=== PATIENT | male | born 1980 | race Caucasian/White ===

== ENCOUNTER → 2023-06-07 10:43 | Outpatient (BNVA) | payer OTHER, SELFPAY | PROVIDERS: PCP Internal Medicine; Visit Provider Physician Assistant | DX: S46.911A Strain of unspecified muscle, fascia and tendon at shoulder and upper arm level, right arm, initial encounter (principal); X50.3XXA Overexertion from repetitive movements, initial encounter | CPT/HCPCS: 99204 ==

== ENCOUNTER → 2023-06-15 09:33 | Outpatient (BNVA) | payer OTHER, SELFPAY | PROVIDERS: PCP Internal Medicine; Visit Provider Physician Assistant | DX: S46.911D Strain of unspecified muscle, fascia and tendon at shoulder and upper arm level, right arm, subsequent encounter (principal); X50.3XXD Overexertion from repetitive movements, subsequent encounter | CPT/HCPCS: 99213 ==

== ENCOUNTER 2023-06-29 11:01 | Outpatient (AMB) | payer OTHER, SELFPAY ==
--- NOTE | 2023-06-29 11:04 | MHC.OFFVIS ---
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 Patient reports pulling a favian out from a car, when he pulled his arm back he felt a pulling sensation in his shoulder. Pain is in the anterior aspect of the shoulder, but pain moves around depending on what he does during the day per patient. Patient states that his pain makes his ROM limited. Allergies No Known Allergies Allergy (Verified 06/29/23 11:16) HPI stylist apprentice- right shoulder injury HPI Details 42-year-old right hand dominant male who presents in the office today, as a new patient, for an evaluation of right shoulder pain. The patient claims on 05/24/2023 he pulled a favian out from a car, when he felt a pulling sensation in the right shoulder while pulling the right upper extremity back. He reports the pain is on the anterior aspect of the right shoulder. He states he has an increase in pain when moving around which increases depending on what he has done during the day. He claims to have limited ROM due to pain. This is a work related injury. [facility] Social History (Updated 06/29/23 @ 11:17 by Se Turner) Alcohol intake: current Patient Tobacco Use Status: Current someday Tobacco user Current occupational status: employed Current occupation: right hand dominant Review of Systems Const All systems reviewed & are unremarkable except as noted in HPI and below Physical Exam Const General: cooperative and no acute distress Orientation/consciousness: patient oriented x3 Resp Effort & Inspection: normal respiratory effort and able to speak in complete sentences Cardio Peripheral pulses: Peripheral pulses 2+ throughout Skin General skin exam: no rashes or lesions noted Neuro General: patient oriented x3 Extrem Other: Right shoulder: Normal to inspection. No ecchymosis, erythema, or edema. Tenderness to palpation at the bicep tendon insertion. Full shoulder ROM in all planes. Positive cross-body reach. 4/5 strength with empty can. Negative drop arm. NVI. Assessment & Plan Assessment & Plan (1) Painful arc syndrome of right shoulder: Code(s): M75.101 - Unspecified rotator cuff tear or rupture of right shoulder, not specified as traumatic Plan Mr. Ny is a 42-year-old right hand dominant male who presents in the office today, as a new patient, for an evaluation of right shoulder pain. The patient claims on 05/24/2023 he pulled a favian out from a car, when he felt a pulling sensation in the right shoulder while pulling the right upper extremity back. He reports the pain is on the anterior aspect of the right shoulder. He states he has an increase in pain when moving around which increases depending on what he has done during the day. He claims to have limited ROM due to pain. This is a work related injury. The patient is currently attending physical therapy. He will continue to work with physical therapy. We will order an MRI to further evaluate the integrity of the right shoulder. He will contact the office by phone once he has had the MRI to discuss what the next step will be. Follow up will be after the MRI is obtained, or sooner if needed. Prior x-rays were negative for any acute fractures or dislocation. Orders: Orders MR shoulder RT wo con Today M75.101 - Unspecified rotator cuff tear or rupture of right shoulder, not specified as traumatic Patient Instructions: Scribed for Ladan Lee PA-C by Nilsa Espitia medical collections specialist, on 06/29/2023 at 11:06 am, EST. Coding Level of Care Code New Pt Level 4 (90189) Diagnoses Painful arc syndrome of right shoulder M75.101
== END 2023-06-29 11:28 | disposition home or self-care (01) ==
PROVIDERS: PCP Internal Medicine; Visit Provider Physician Assistant
DX: M75.101 Unspecified rotator cuff tear or rupture of right shoulder, not specified as traumatic (principal)
CPT/HCPCS: 99204

== ENCOUNTER → 2023-06-29 11:01 | Outpatient (BNVA) | payer OTHER, SELFPAY | PROVIDERS: PCP Internal Medicine; Visit Provider Physician Assistant | DX: M75.101 Unspecified rotator cuff tear or rupture of right shoulder, not specified as traumatic (principal) | CPT/HCPCS: 99202 ==

== ENCOUNTER 2023-07-27 14:02 | Outpatient (REF) | payer OTHER, SELFPAY ==
--- NOTE | ~2023-07-27 | MR_ITS ---
EXAMINATION: MR SHOULDER WITHOUT CONTRAST, RIGHT CLINICAL INFORMATION: Right shoulder pain and decreased range of motion. Evaluate for a rotator cuff tendon tear. COMPARISON: Right shoulder radiographs dated 06/07/2023. TECHNIQUE: MRI of the shoulder without contrast was performed on a high-field scanner. FINDINGS: ROTATOR CUFF: Intact. No muscle atrophy or fatty infiltration. BICEPS: Intact. CORACOACROMIAL ARCH: The undersurface of the acromion is curved with no subacromial spur. Severe acromioclavicular osteoarthritis. There is subchondral cystic change and marrow edema as well as adjacent capsular edema. Findings may be degenerative or indicate acromioclavicular osteolysis, which can be seen in the setting of an overuse injury. Trace fluid within the subacromial subdeltoid bursa, consistent with mild bursitis. LABRUM/CAPSULE: No displaced labral tear. Intact joint capsule. GLENOHUMERAL JOINT/MARROW: Intact articular cartilage. Mild degenerative cystic change within the greater tuberosity. MR/MR shoulder RT wo con IMPRESSION: 1. Severe acromioclavicular osteoarthritis with subchondral cystic change and marrow edema as well as adjacent capsular edema. Findings may be degenerative or indicate acromioclavicular osteolysis, which can be seen in the setting of an overuse injury. 2. Mild subacromial subdeltoid bursitis. 3. No rotator cuff or labral tear.
--- NOTE | ~2023-07-27 | XR_ITS ---
EXAMINATION: XR PRE MRI SCREENING INDICATION: MRI screening. TECHNIQUE: 3 views of the orbits were obtained. FINDINGS: No radiopaque foreign bodies were found. XR/XR pre mri screening IMPRESSION: No evidence of metallic foreign body.
== END 2023-07-27 14:03 | disposition home or self-care (01) ==
LOC: HO.MRI 14:02
PROVIDERS: Visit Provider Physician Assistant
DX: M75.101 Unspecified rotator cuff tear or rupture of right shoulder, not specified as traumatic (principal)
CPT/HCPCS: 73221

== ENCOUNTER 2023-08-10 13:43 | Outpatient (AMB) | payer OTHER, SELFPAY ==
--- NOTE | 2023-08-10 14:08 | A.OFFVIS_ITS ---
Intake Intake Visit Reasons: OV - Right Shoulder MRI Review Intake Note: Naga 42 yr old male presents today for his right shoulder MRI review. States no changes in pain or medical history since last visit. Allergies No Known Allergies Allergy (Verified 08/10/23 14:12) HPI OV - Right Shoulder MRI Review HPI Details 42-year-old male who presents in the off ice today for a follow up of right shoulder pain and review of his MRI. The patient reports no change in the pain. He confirms participating in physical therapy on Monday08/07/2023. He states after physical therapy he had severe pain. This pain kept him from being able to go to work. He states he was able to go to work on Monday and Monday, but still had pain. He states the pain is not as severe today. He states he is having a hard time with daily activities like putting on clothes and playing with his grandchild. He has no change in his medical history from his last appointment. [facility], [facility] Social History Alcohol intake: current Patient Tobacco Use Status: Current someday Tobacco user Current occupational status: employed Current occupation: right hand dominant Review of Systems Const All systems reviewed & are unremarkable except as noted in HPI and below Physical Exam Const General: cooperative, healthy appearing and no acute distress Orientation/consciousness: patient oriented x3 Resp Effort & Inspection: normal respiratory effort and able to speak in complete sentences Cardio Rate: regular rate Peripheral pulses: Peripheral pulses 2+ throughout GI Palpation (GI): Soft to palpation Skin General skin exam: no rashes or lesions noted Lesions: no lesions Rashes: no rashes Neuro General: patient oriented x3 Extrem Other: Right shoulder: Normal to inspection. No ecchymosis, erythema, or edema. Tenderness to palpation at the bicep tendon insertion. Pain along the impingement arc. Full shoulder ROM in all planes. Positive cross-body reach. 4/5 strength with empty can. Negative drop arm. NVI. Office Procedures Joint Injection/Drain Joint Injection/Drain Primary Site: other (right AC joint) Prep: site was prepped using aseptic technique, ethochloride spray was applied and injection warnings given Injected: 0.25% bupivacaine (1mL ), decadron (1mL ) and other (1mL of 2% plain lido ) Approach Used: other (superior ) Procedure: The patient tolerated the procedure well, but had some pain with the injection and there was some relief with the local anesthesia Coding 68073 - Medium joint Procedure code (CPT) selection complete Results Reviewed Results Reviewed: 08/10/23 14:29 BUPivacaine MPF 0.25 % [Sensorcaine-MPF 0.25% 10 ML] 10 ml .ROUTE .STK-MED ONE Lidocaine HCl 1 % [Xylocaine 1 %] 2 ml .ROUTE .STK-MED ONE dexAMETHasone sod phosphate [Decadron] 4 mg .ROUTE .STK-MED ONE Assessment & Plan Assessment & Plan (1) Painful arc syndrome of right shoulder: Code(s): M75.101 - Unspecified rotator cuff tear or rupture of right shoulder, not specified as traumatic Plan Mr. Ny is a 42-year-old male who presents in the office today for a follow up of right shoulder pain and review of his MRI. The patient reports no change in the pain. He confirms participating in physical therapy on Monday08/07/2023. He states after physical therapy he had severe pain. This pain kept him from being able to go to work. He states he was able to go to work on Monday and Monday, but still had pain. He states the pain is not as severe today. He has no change in his medical history from his last appointment. Dr. Mccormack was available see the patient with me while in the office today and collaborative treatment plan was made. I discussed the role of an AC joint injection. We also discussed the role of conservative verses surgical treatments. The patient presented with paperwork for his job to be filled out. 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 Dr. Mccormack injected the patient in the right shoulder AC joint. The patient was offered a cortisone injection in the right shoulder. The patient was explained the risk, benefits, and alternatives to receiving this injection. After receiving consent for the injection, the patient had the procedure done while in office today. The patient tolerated the procedure well with no complications. He will contact the office in 2 weeks to let us know if the injection worked. Follow up will be via phone call in 2 weeks, or sooner if needed. MRI of the right shoulder, obtained on 07/27/2023, revealed: 1. Severe acromioclavicular osteoarthritis with subchondral cystic change and marrow edema as well as adjacent capsular edema. Findings may be degenerative or indicate acromioclavicular osteolysis, which can be seen in the setting of an overuse injury. 2. Mild subacromial subdeltoid bursitis. 3. No rotator cuff or labral tear. Patient Instructions: Scribed for Ladan Lee PA-C by Nilsa Espitia medical office asst, on 08/10/2023 at 1:47 pm, EST. Coding Level of Care Code Est Pt Level 4 (02564) Diagnoses Painful arc syndrome of right shoulder M75.101 CPT Codes Coding - 10546 Medium joint: 91917 - Medium joint ([id number])
== END 2023-08-10 14:57 | disposition home or self-care (01) ==
PROVIDERS: PCP Internal Medicine; Visit Provider Physician Assistant
DX: M19.011 Primary osteoarthritis, right shoulder (principal)
CPT/HCPCS: 20605; 99214

== ENCOUNTER → 2023-08-10 13:43 | Outpatient (BNVA) | payer OTHER, SELFPAY | PROVIDERS: PCP Internal Medicine; Visit Provider Physician Assistant | DX: M75.101 Unspecified rotator cuff tear or rupture of right shoulder, not specified as traumatic (principal) | CPT/HCPCS: 20605; 99212; J1100 ==

== ENCOUNTER 2023-09-19 09:39 | Outpatient (AMB) | payer OTHER, SELFPAY ==
--- NOTE | 2023-09-19 09:41 | MHC.OFFVIS ---
Intake Intake Visit Reasons: OV-Right shoulder pain Intake Note: Naga is a 43 year old male who presents today for a follow up for his right shoulder pain, last injection 08/10/23. Patient reports his last injection didn't give him relief. Patient is still having ongoing pain in his shoulder. Allergies No Known Allergies Allergy (Verified 08/10/23 14:12) HPI OV-Right shoulder pain HPI Details 43-year-old male who presents in the office today for a follow up of right shoulder pain. The patient had a cortisone injection on 08/10/2023. He states his last injection only gave him 2 days of decreased pain. He confirms ongoing pain since his last appointment. He is continuing to participate in physical therapy, but his pain returned to base line. [facility] Social History Alcohol intake: current Patient Tobacco Use Status: Current someday Tobacco user Current occupational status: employed Current occupation: right hand dominant Review of Systems Const All systems reviewed & are unremarkable except as noted in HPI and below Physical Exam Const General: cooperative, healthy appearing and no acute distress Resp Effort & Inspection: normal respiratory effort and able to speak in complete sentences Cardio Rate: regular rate Peripheral pulses: Peripheral pulses 2+ throughout GI Palpation (GI): Soft to palpation Skin Lesions: no lesions Rashes: no rashes Extrem Other: Right shoulder: Normal to inspection. No ecchymosis, erythema, or edema. Tenderness to palpation at the bicep tendon insertion. Pain along the impingement arc. Full shoulder ROM in all planes. Positive cross-body reach. 4/5 strength with empty can. Negative drop arm. NVI. Assessment & Plan Assessment & Plan (1) Painful arc syndrome of right shoulder: Code(s): M75.101 - Unspecified rotator cuff tear or rupture of right shoulder, not specified as traumatic Plan Mr. Ny is a 43-year-old male who presents in the office today for a follow up of right shoulder pain. The patient had a cortisone injection on 08/10/2023. He states his last injection only gave him 2 days of decreased pain. He confirms ongoing pain since his last appointment. He is continuing to participate in physical therapy, but his pain returned to base line. I would like for the patient to follow up with Dr. Mccormack for further evaluation and treatment to discuss possible surgical intervention. Follow up will be with Dr. Mccormack, or sooner if needed. Patient Instructions: Scribed for Ladan Lee PA-C by Nilsa Espitia medical coding technician, on 09/19/2023 at 9:49 am, EST. Coding Level of Care Code Est Pt Level 3 (87688) Diagnoses Painful arc syndrome of right shoulder M75.101
== END 2023-09-19 09:59 | disposition home or self-care (01) ==
PROVIDERS: PCP Internal Medicine; Visit Provider Physician Assistant
DX: M75.101 Unspecified rotator cuff tear or rupture of right shoulder, not specified as traumatic (principal)
CPT/HCPCS: 99213

== ENCOUNTER → 2023-09-19 09:39 | Outpatient (BNVA) | payer OTHER, SELFPAY | PROVIDERS: PCP Internal Medicine; Visit Provider Physician Assistant | DX: M75.101 Unspecified rotator cuff tear or rupture of right shoulder, not specified as traumatic (principal) | CPT/HCPCS: 99212 ==

== ENCOUNTER 2023-09-28 10:53 | Outpatient (AMB) | payer OTHER, SELFPAY ==
--- NOTE | 2023-09-28 10:56 | MHC.OFFVIS ---
Intake Intake Visit Reasons: OV - to discuss surgery, rt shoulder Intake Note: Naga is a 43 year old right hand dominant male who presents today to discuss possible surgery of the right shoulder. Last Injection done 08/10/2023 with which gave about 1 week relief. 05/24/2023 he pulled a favian out from a car, when he felt a pulling sensation in the right shoulder while pulling the right upper extremity back. Patient reports that his symptoms are about the same. Allergies No Known Allergies Allergy (Verified 08/10/23 14:12) HPI OV - to discuss surgery, rt shoulder HPI Details Naga is a 43 year old man who presents for an MRI review of his right shoulder. He says on 05/24/23, while removing a favian from underneath a car, he felt a painful pulling sensation in his right shoulder and began to feel pain. He has pain with daily activity, along with limited ROM. He feels a clicking or catching sensation in his shoulder at times, and describes feeling something bothering his nerves when he moves it like something plucking guitar strings. He found short-term relief from a steroid injection on 08/10/23, and some improvements with PT, but he continues to have pain and be limited in his activities. 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 [facility] Social History Alcohol intake: current Patient Tobacco Use Status: Current someday Tobacco user Current occupational status: employed Current occupation: right hand dominant Review of Systems Const All systems reviewed & are unremarkable except as noted in HPI and below Physical Exam Const General: no acute distress, alert and awake Orientation/consciousness: patient oriented x3 HEENT Head: Yes normocephalic and Yes atraumatic Eyes EOM: EOMs intact bilaterally Resp Effort & Inspection: normal respiratory effort and able to speak in complete sentences Cardio Jugular venous distension: no JVD Skin General skin exam: turgor normal Rashes: no rashes Neuro General: patient oriented x3 Extrem Other: Right Shoulder: Psych Appearance: grossly normal Affect: normal affect Attitude: cooperative Results Reviewed Results Reviewed: I personally reviewed relevant MR images 1. Severe acromioclavicular osteoarthritis with subchondral cystic change and marrow edema as well as adjacent capsular edema. Findings may be degenerative or indicate acromioclavicular osteolysis, which can be seen in the setting of an overuse injury. 2. Mild subacromial subdeltoid bursitis. 3. No rotator cuff or labral tear. Assessment & Plan Assessment & Plan (1) Osteoarthritis of right acromioclavicular joint: Code(s): M19.011 - Primary osteoarthritis, right shoulder Plan: This is a 43 year old man with right AC joint OA. He has pain with daily activity, and limited ROM. He feels limited in his ADLs and use of his arm, and is frustrated by his pain. His pain began after an injury on 05/24/23. He found relief from steroid injections & PT but it was incomplete. He has difficulty completing daily activities without pain. I discussed his diagnosis and treatment options. I recommend a right shoulder clavicle excision. I discussed the risks, benefits, and alternatives including, but not limited to, the risk of pain, infection, stiffness, need for further surgery as well as potential medical complications such as blood clots, pulmonary embolism and cardiac complications. I discussed the recovery timeline and process as well as the importance of PT. Naga is a good candidate for this surgery, and he wishes to proceed with this decision. He will speak with Briseyda to schedule this procedure. He Plan Scribed for Joe Mccormack MD by Braden Ayon, biomedical engineering technologist, on 09/28/23 at 11:30 AM, EST. Coding Level of Care Code Est Pt Level 4 (95111) Diagnoses Osteoarthritis of right acromioclavicular joint M19.011
== END 2023-09-28 11:56 | disposition home or self-care (01) ==
PROVIDERS: PCP Internal Medicine; Visit Provider Orthopaedic Surgery
DX: M19.011 Primary osteoarthritis, right shoulder (principal)
CPT/HCPCS: 99214

== ENCOUNTER → 2023-09-28 10:53 | Outpatient (BNVA) | payer OTHER, SELFPAY | PROVIDERS: PCP Internal Medicine; Visit Provider Orthopaedic Surgery | DX: M19.011 Primary osteoarthritis, right shoulder (principal) | CPT/HCPCS: 99212 ==

== ENCOUNTER 2023-10-25 09:16 | Day surgery (SDC) | payer OTHER, SELFPAY ==
--- NOTE | 2023-10-24 08:39 | P.CONAN_ITS ---
Documented by User: Concha Santoyo NP 10/24/23 08:45 HPI - Anesthesia Eval Consult details Narrative: 43yo M for Right Shoulder Arthroscopy distal clavicle excision and subacromial decompression Recent URI with abx/prednisone 10/13/23. Rx's complete and symptoms resolved. Productive cough in the morning since quitting smoking 3 years ago. [facility] Active Problems Active Problems: All Active Problems (Updated 09/28/23 @ 11:19 by Braden Ayon) Osteoarthritis of right acromioclavicular joint (Acute) Painful arc syndrome of right shoulder (Acute) Surgical History Surgical History (Updated 10/25/23 @ 10:32 by Aleshia Salomon RN) Hx of vasectomy History of inguinal hernia repair, bilateral Hx of foot surgery Social History Social History Alcohol intake: current Patient Tobacco Use Status: Former Tobacco user Quit Date: 4yrs ago Use of substances other than those prescribed or required for medical reasons: No Are you DNR?: No Advance Directives: No Advance Directives Information Provided: Yes Current occupational status: employed Current occupation: right hand dominant Meds Allergies Allergy/AdvReac Type Severity Reaction Status Date / Time No Known Allergies Allergy Verified 08/10/23 14:12 Assessment and Plan Assessment Anesthesia Assessment: Chart Reviewed Documented by User: Chalo Anderson MD 10/25/23 12:03 [facility] Family History Family history of problems with anesthesia: No Surgical History Surgical History (Updated 10/25/23 @ 10:32 by Aleshia Salomon RN) Hx of vasectomy History of inguinal hernia repair, bilateral Hx of foot surgery History of Problems with Anesthesia: No Social History Social History Alcohol intake: current Patient Tobacco Use Status: Former Tobacco user Quit Date: 4yrs ago Use of substances other than those prescribed or required for medical reasons: No Are you DNR?: No Advance Directives: No Advance Directives Information Provided: Yes Current occupational status: employed Current occupation: right hand dominant Meds Allergies Allergy/AdvReac Type Severity Reaction Status Date / Time No Known Allergies Allergy Verified 08/10/23 14:12 Exam Airway Mallampati Class: III TM Dist: >3cm Neck ROM: Limited Heart: rrr Lungs: cta Assessment and Plan Assessment Anesthesia Assessment: Anesthesia Plan Discussed and Smoking Cess. Discussed Final Anesthetic Review Family History of Problems with Anesthesia: No History of Problems with Anesthesia: No NPO: Yes ASA Class: II Final Preanesthetic Review: No Changes in Pt Med Stat, Meds/Allgs Chart Reviewed, Consent Obtained/Reviewed and Anes Risks/Benef Reviewed Patient Risk: Intermediate Procedure Risk: Intermediate Anesthetic Plan Anesthetic Plan: GA, Regional Block and Agree w/ Assess. and Plan Disposition: Standard PACU
[2023-10-25] VITALS (8 sets, daily range): BP systolic 116–128; BP diastolic 64–81; PULSE 57–89; RESP 16–22; TEMP 36.3–36.9; O2SAT 94–100; BMI 34.2
[2023-10-25] MEDS: Lactated Ringers 1,000 ML 100 ML IVCONT (10:47)
--- NOTE | 2023-10-25 13:49 | MHC.SHP ---
Pre-Procedural Eval Section A Date of Service: 10/25/23 The patient is an INPATIENT: No Changes since office visit: No Cold of Flu in the past 2 weeks, No New Medical Problems, No Changes in Medication and No Patient answered all questions The History & Physical has been completed within 30 days and I have reviewed it.: Yes Section B Chief Complaint: Primary osteoarthritis, right shoulder Allergies: Allergies Allergy/AdvReac Type Severity Reaction Status Date / Time No Known Allergies Allergy Verified 08/10/23 14:12 Plan I have reviewed the history and physical and performed a pertinent physical examination on my patient. No changes have occurred unless specified. Time Spent With Patient Time: Total time managing care of this patient today ____ minutes.
[2023-10-25] MEDS: HYDROmorphone HCl 0.5 MG/0.5 ML SYRINGE 0.25 MG IVPUSH ×4 (15:45→16:00)
[2023-10-25] MEDS: Acetaminophen 1,000 MG/100 ML PIGGYBACK 400 MG IV (15:52)
--- NOTE | 2023-10-25 18:04 | P.BOP_ITS ---
Brief Operative Note Date of Service: 10/25/23 Pre-op diagnosis: right shoulder margie and ACJ OA Post-op diagnosis: other (1) ACJ OA 2) RTC tear 3) SLAP tear) Procedure: Right shoulder RTC repair with collagen allograft with SAD and DCE Biceps sub pectoral tenodesis Implants: Regeneten bioinductive collagen implant, medium Arthrex biceps suture button and interference screw Surgeon: Joe Mccormack MD Anesthesia: GETA and regional Was an Motor Vehicle License Clerk used for this Procedure?: Yes Motor Vehicle License Clerk: Ladan Lee Estimated blood loss (mL): 25 IV fluids (mL): 1,200 Pathology: none sent Condition: stable Disposition: PACU
--- NOTE | 2023-10-27 15:40 | W.PM.OPN ---
Operative Note Operative Note Date of Service: 10/25/23 Narrative: Date of Service: 10/25/23 Pre-op diagnosis: right shoulder margie and ACJ OA Post-op diagnosis: other (1) ACJ OA 2) RTC tear 3) SLAP tear) Procedure: Right shoulder RTC repair with collagen allograft with SAD and DCE Biceps sub pectoral tenodesis Implants: Regeneten bioinductive collagen implant, medium Arthrex biceps suture button and interference screw Surgeon: Joe Mccormack MD Anesthesia: GETA and regional Was an Care Information Associate used for this Procedure?: Yes Care Information Associate: Ladan Lee Estimated blood loss (mL): 25 IV fluids (mL): 1,200 Pathology: none sent Condition: stable Disposition: PACU Procedure in detail: Patient was brought to the operating room and placed the the beach chair position. All bony prominences were well padded and the limb was prepped and draped in standard sterile fashion. A time out was called to identify proper site, proper procedure and proper surgeon. IV antibiotics per weight were administered. I began by making a posterolateral stab incision with a 15 blade. A blunt trochar was placed into the glenohumeral joint and I insufflated the joint with saline and a 30 degree arthroscope was placed. I established an outside- in anterior portal just distal to the biceps tendon. I then began my inspection of the glenohumeral joint. There was a large degenerative SLAP tear at the biceps anchor ( Type 2). There were minimal cartilage changes at the inferior glenoid without humeral head changes. There was a partial thickness undersurface RTC tear. The subcapularis was intact. I debrided the loose cartilage of the glenoid and the degenerative labral tearing and performed a biceps tenotomy. I then removed the trochar and entered the subacromial space. A direct lateral portal was then established and I performed a bursectomy. The cuff was then examined. There was a bursal sided partial thickness tear adjacent to the undersurface tearing. I debrided the loose tissue. I then placed a medium Regeneten bioinductive implant over the bursal sided tear. This was attechd medially with PEEK kylah and laterally wiht one bone staple. I then decompressed the subacromial spur. I then, via the anterior portal, removed 5 mm of the distal clavicle making sure to preserve the superior soft tissues. Once I was satisfied with the repair final images were captured and I removed all instrumentation. Portals were closed with nylon. I then made a 2 cm incision over the axillary fold and , once through the skin, dissected bluntly down to the humeral shaft and palpated the biceps tendon. I retrieved the tenotomized tendon and whip stitched it and measured a 7mm tendon. I then drilled a 7.5 mm unicorital hole and the second cortex was drilled with a beefpin. The suture button was then added and dunked through the second cortex. The button was tightened and then the Arthrex interference screw was placed. I was satisfied with the tenodesis. The wound was irrigated and closed with absorbable suture. Patient was placed in an abduction sling, extubated and brought to the recovery room in stable condition. There were no known complications.
== END 2023-10-25 17:10 | disposition home or self-care (01) ==
LOC: HO.SSS 09:17
PROVIDERS: PCP Internal Medicine; Visit Provider Orthopaedic Surgery
PROC: (CPT 29805; principal; 2023-10-25 11:30)
DX: M19.011 Primary osteoarthritis, right shoulder (principal); X50.0XXA Overexertion from strenuous movement or load, initial encounter; Y93.89 Activity, other specified; Y92.9 Unspecified place or not applicable; Y99.9 Unspecified external cause status; F17.210 Nicotine dependence, cigarettes, uncomplicated
CPT/HCPCS: 29827; 29828; 29824; C1713; C1781; J0131; J0171; J0690; J1100; J1170; J2405; J2704; J2795

== ENCOUNTER → 2023-10-25 09:16 | Outpatient (BNV) | payer OTHER, SELFPAY | PROVIDERS: PCP Internal Medicine; Visit Provider Orthopaedic Surgery | DX: S43.431A Superior glenoid labrum lesion of right shoulder, initial encounter (principal); M19.011 Primary osteoarthritis, right shoulder | CPT/HCPCS: 23430; 29824; 29827 ==

== ENCOUNTER 2023-10-31 14:13 | Outpatient (AMB) | payer OTHER, SELFPAY ==
--- NOTE | 2023-10-31 14:17 | A.OFFVIS_ITS ---
Intake Intake Visit Reasons: PO-Rt Shld 10/25 NE Intake Note: Naga is a 43 year old male who presents today for a post op appointment s/p right shoulder 10/25/23 NE. Patient reports he is doing okay but a bit sore. Allergies No Known Allergies Allergy (Verified 10/31/23 14:17) HPI PO-Rt Shld 10/25 NE HPI Details 43-year-old male who presents in the off ice today 6 days status post right shoulder rotator cuff repair with collagen allograft with SAD and DCE, which was performed on 10/25/[address] Mccormack. The patient reports he is doing okay, but a bit sore. [facility] Surgical History (Updated 10/31/23 @ 14:30 by Nilsa Espitia) Hx of vasectomy History of inguinal hernia repair, bilateral Hx of foot surgery Social History Alcohol intake: current Patient Tobacco Use Status: Former Tobacco user Quit Date: 4yrs ago Current occupational status: employed Current occupation: right hand dominant Review of Systems Const All systems reviewed & are unremarkable except as noted in HPI and below Physical Exam Const General: cooperative, healthy appearing and no acute distress Resp Effort & Inspection: normal respiratory effort and able to speak in complete sentences Cardio Rate: regular rate Peripheral pulses: Peripheral pulses 2+ throughout GI Palpation (GI): Soft to palpation Skin Lesions: no lesions Rashes: no rashes Extrem Other: Right shoulder: Incision site is clean, dry, and intact. Sutures intact. No surrounding erythema or drainage. No signs of infection. Forward flexion and abduction to 45 degrees. External rotation to neutral. NVI. Assessment & Plan Assessment & Plan (1) Status post right rotator cuff repair: Comment: Right shoulder rotator cuff repair with collagen allograft with SAD and DCE 10/25/2023 NE Code(s): Z98.890 - Other specified postprocedural states Plan Mr. Ny is a 43-year-old male who presents in the office today 6 days status post right shoulder rotator cuff repair with collagen allograft with SAD and DCE, which was performed on 10/25/[address] Mccormack. The patient reports he is doing okay, but a bit sore. The patient will remain in the sling for 6 weeks. He will attend physical therapy. He will remain out of work until follow up. Follow up will be in [address] Mccormack. Orders: Orders PT Evaluation and Treatment Today Z98.890 - Other specified postprocedural states Patient Instructions: Scribed for Ladan Lee PA-C by Nilsa Espitia medical laboratory manager, on 10/31/2023 at 2:17 pm, EST. Coding Level of Care Code Global (64101) Diagnoses Status post right rotator cuff repair Z98.890
== END 2023-10-31 14:55 | disposition home or self-care (01) ==
PROVIDERS: PCP Internal Medicine; Visit Provider Physician Assistant
DX: Z98.890 Other specified postprocedural states (principal)
CPT/HCPCS: 99024

== ENCOUNTER → 2023-10-31 14:13 | Outpatient (BNVA) | payer OTHER, SELFPAY | PROVIDERS: PCP Internal Medicine; Visit Provider Physician Assistant | DX: Z47.89 Encounter for other orthopedic aftercare (principal) | CPT/HCPCS: 99212 ==

== ENCOUNTER 2023-11-30 14:50 | Outpatient (AMB) | payer OTHER, SELFPAY ==
--- NOTE | 2023-11-30 14:57 | MHC.OFFVIS ---
Intake Vital Signs 11/30/23 15:00 Height 5 ft 7 in Weight 208 lb BMI 32.6 Intake Visit Reasons: PO-Rt Shld 10/25/23 NE Intake Note: Naga is a 43 year old -- hand dominant male who presents today for a post op appointment s/p right shoulder 10/25/23 NE. Patient reports that he is feeling sore & tender to the touch, mentions that he has acing in his hand denies numbness and tingling. Took a fall on 11/26/23 while he was going up the stairs, he was wearing his sling and did not land on the shoulder. Allergies No Known Allergies Allergy (Verified 10/31/23 14:17) HPI PO-Rt Shld 10/25/23 NE HPI Details Naga is a 43 year old man who presents ~5 weeks S/P right shoulder RTC repair, SAD, DCE, & biceps tenodesis. He says he has some pain and his shoulder is tender to touch. He also reports some aching in his hand, but denies any numbness or tingling. He is seen today wearing his sling. [facility] Surgical History (Updated 10/31/23 @ 14:30 by Nilsa Espitia) Hx of vasectomy History of inguinal hernia repair, bilateral Hx of foot surgery Social History Alcohol intake: current Patient Tobacco Use Status: Former Tobacco user Quit Date: 4yrs ago Current occupational status: employed Current occupation: right hand dominant Review of Systems Const All systems reviewed & are unremarkable except as noted in HPI and below Physical Exam Vital Signs: BMI result Body Mass Index 32.6 Const General: no acute distress, alert and awake Orientation/consciousness: patient oriented x3 HEENT Head: Yes normocephalic and Yes atraumatic Eyes EOM: EOMs intact bilaterally Resp Effort & Inspection: normal respiratory effort and able to speak in complete sentences Cardio Jugular venous distension: no JVD Skin General skin exam: turgor normal Rashes: no rashes Neuro General: patient oriented x3 Extrem Other: 30 deg ER 90 abd with mild recruitment FF to 120 IR to hip pocket portals c/d/i Psych Appearance: grossly normal Affect: normal affect Attitude: cooperative Assessment & Plan Assessment & Plan (1) Status post right rotator cuff repair: Comment: Right shoulder rotator cuff repair with collagen allograft with SAD and DCE 10/25/2023 NE Code(s): Z98.890 - Other specified postprocedural states Plan: ROM and strengthening per small repair protocol No work F/u 6 weeks (2) Biceps tendon tear: Code(s): S46.219A - Strain of muscle, fascia and tendon of other parts of biceps, unspecified arm, initial encounter Plan Scribed for Joe Mccormack MD by Braden Ayon medical physics professor, on 11/30/23 at 3:10 PM, EST. Orders: Orders PT Evaluation and Treatment 11/30/23 S46.219A - Strain of muscle, fascia and tendon of other parts of biceps, unspecified arm, initial encounter, Z98.890 - Other specified postprocedural states Coding Level of Care Code Global (19079) Diagnoses Status post right rotator cuff repair Z98.890 Biceps tendon tear S46.219A
[2023-11-30 15:00] VITALS: BMI 32.6
== END 2023-11-30 15:17 | disposition home or self-care (01) ==
PROVIDERS: PCP Internal Medicine; Visit Provider Orthopaedic Surgery
DX: Z98.890 Other specified postprocedural states (principal); S46.219A Strain of muscle, fascia and tendon of other parts of biceps, unspecified arm, initial encounter
CPT/HCPCS: 99024

== ENCOUNTER → 2023-11-30 14:50 | Outpatient (BNVA) | payer OTHER, SELFPAY | PROVIDERS: PCP Internal Medicine; Visit Provider Orthopaedic Surgery | DX: Z47.89 Encounter for other orthopedic aftercare (principal); S46.211D Strain of muscle, fascia and tendon of other parts of biceps, right arm, subsequent encounter | CPT/HCPCS: 99212 ==

== ENCOUNTER 2024-01-05 10:13 | Outpatient (AMB) | payer OTHER, SELFPAY ==
--- NOTE | 2024-01-05 10:22 | A.OFFVIS_ITS ---
Intake Intake Visit Reasons: PO-Rt Shld 10/25/23 NE Intake Note: Naga is a 43 year old right hand dominant male who presents today for a post op appointment s/p right shoulder 10/25/23 NE. Fall on 11/26/23. We will be completing a status report for him today in office Allergies No Known Allergies Allergy (Verified 10/31/23 14:17) HPI PO-Rt Shld 10/25/23 NE HPI Details Naga is a 43 year old man who presents ~9 weeks S/P right shoulder RTC repair, SAD, DCE, & biceps tenodesis. He fell on 11/26/23 He says he has some pain with use of his shoulder. He has been performing exercises at home. [facility] Surgical History (Updated 10/31/23 @ 14:30 by Nilsa Espitia) Hx of vasectomy History of inguinal hernia repair, bilateral Hx of foot surgery Social History Alcohol intake: current Patient Tobacco Use Status: Former Tobacco user Quit Date: 4yrs ago Current occupational status: employed Current occupation: right hand dominant Review of Systems Const All systems reviewed & are unremarkable except as noted in HPI and below Physical Exam Const General: no acute distress, alert and awake Orientation/consciousness: patient oriented x3 HEENT Head: Yes normocephalic and Yes atraumatic Eyes EOM: EOMs intact bilaterally Resp Effort & Inspection: normal respiratory effort and able to speak in complete sentences Cardio Jugular venous distension: no JVD Skin General skin exam: turgor normal Rashes: no rashes Neuro General: patient oriented x3 Extrem Other: Smooth arc of abduction with full motion inc c/d/i Strong supination Psych Appearance: grossly normal Affect: normal affect Attitude: cooperative Assessment & Plan Assessment & Plan (1) Status post right rotator cuff repair: Comment: Right shoulder rotator cuff repair with collagen allograft with SAD and DCE 10/25/2023 NE Code(s): Z98.890 - Other specified postprocedural states Plan: Naga is doing very well He may return to work with no lifting or overhead work. ok to drive. Continue PT. f/u 6 weeks (2) Biceps tendon tear: Code(s): S46.219A - Strain of muscle, fascia and tendon of other parts of biceps, unspecified arm, initial encounter (3) Osteoarthritis of right acromioclavicular joint: Code(s): M19.011 - Primary osteoarthritis, right shoulder Plan Prepared for Joe Mccormack MD by Braden Ayon, diploma medical assistant, on 01/05/24 at 10:36 AM, EST. Coding Level of Care Code Global (91477) Diagnoses Status post right rotator cuff repair Z98.890 Biceps tendon tear S46.219A Osteoarthritis of right acromioclavicular joint M19.011
== END 2024-01-05 10:40 | disposition home or self-care (01) ==
PROVIDERS: PCP Internal Medicine; Visit Provider Orthopaedic Surgery
DX: Z98.890 Other specified postprocedural states (principal); S46.219A Strain of muscle, fascia and tendon of other parts of biceps, unspecified arm, initial encounter; M19.011 Primary osteoarthritis, right shoulder
CPT/HCPCS: 99024

== ENCOUNTER → 2024-01-05 10:13 | Outpatient (BNVA) | payer OTHER, SELFPAY | PROVIDERS: PCP Internal Medicine; Visit Provider Orthopaedic Surgery | DX: S46.211D Strain of muscle, fascia and tendon of other parts of biceps, right arm, subsequent encounter (principal); M19.011 Primary osteoarthritis, right shoulder; Z98.890 Other specified postprocedural states | CPT/HCPCS: 99212 ==

== ENCOUNTER 2024-02-16 12:10 | Outpatient (AMB) | payer OTHER, SELFPAY ==
[2024-02-16 12:13] VITALS: BMI 31.8
--- NOTE | 2024-02-16 12:13 | MHC.OFFVIS ---
Intake Vital Signs 02/16/24 12:13 Height 5 ft 7 in Weight 203 lb BMI 31.8 Intake Visit Reasons: Ov-Rt Shld 10/25/23 NE Intake Note: Naga is a 43 year old right hand dominant male who presents today for a post op appointment s/p right shoulder 10/25/23 NE. Fall on 11/26/23. At his last visit he was released back to work with no lifting or overhead work. ok to drive. He reports that he is doing well, he is having some soreness at the anterior aspect of the shoulder with good ROM. He denies numbness and tingling but he has some weakness/soreness of the right hand. Allergies No Known Allergies Allergy (Verified 02/16/24 12:16) HPI Ov-Rt Shld 10/25/23 NE HPI Details Naga is doing very well. He is full range of motion but is still limited to 10 lb of lifting. He underwent a large rotator cuff repair with biceps tenodesis [facility] Surgical History (Updated 10/31/23 @ 14:30 by Nilsa Espitia) Hx of vasectomy History of inguinal hernia repair, bilateral Hx of foot surgery Social History Alcohol intake: current Patient Tobacco Use Status: Former Tobacco user Quit Date: 4yrs ago Current occupational status: employed Current occupation: right hand dominant Physical Exam Vital Signs: BMI result Body Mass Index 31.8 Extrem Other: Full range of motion right shoulder. (45/9/130/T10) Negative and strong empty can testing. Assessment & Plan Assessment & Plan (1) Biceps tendon tear: Code(s): S46.219A - Strain of muscle, fascia and tendon of other parts of biceps, unspecified arm, initial encounter Plan: Naga is doing very well but I still do not think he should engage in heavy lifting given the severity of his injury. I recommend continue current work restrictions for an additional 2 months. Follow-up to see me in 6-8 weeks. May progress strengthening with physical therapy. (2) Status post right rotator cuff repair: Comment: Right shoulder rotator cuff repair with collagen allograft with SAD and DCE 10/25/2023 NE Code(s): Z98.890 - Other specified postprocedural states Plan: Naga is doing very well but I still do not think he should engage in heavy lifting given the severity of his injury. I recommend continue current work restrictions for an additional 2 months. Follow-up to see me in 6-8 weeks. May progress strengthening with physical therapy. Coding Level of Care Code Est Pt Level 3 (64040) Diagnoses Biceps tendon tear S46.219A Status post right rotator cuff repair Z98.890
== END 2024-02-16 12:42 | disposition home or self-care (01) ==
PROVIDERS: PCP Internal Medicine; Visit Provider Orthopaedic Surgery
DX: S46.211A Strain of muscle, fascia and tendon of other parts of biceps, right arm, initial encounter (principal)
CPT/HCPCS: 99213

== ENCOUNTER → 2024-02-16 12:10 | Outpatient (BNVA) | payer OTHER, SELFPAY | PROVIDERS: PCP Internal Medicine; Visit Provider Orthopaedic Surgery | DX: S46.911D Strain of unspecified muscle, fascia and tendon at shoulder and upper arm level, right arm, subsequent encounter (principal) | CPT/HCPCS: 99212 ==

== ENCOUNTER 2024-04-12 09:13 | Outpatient (AMB) | payer OTHER, SELFPAY ==
--- NOTE | 2024-04-12 09:29 | MHC.OFFVIS ---
Vital Signs 04/12/24 09:30 Height 5 ft 7 in Weight 203 lb BMI 31.8 Intake Visit Reasons: Ov-Rt Shld 10/25/23 NE Intake Note: Naga is a 43 year old right hand dominant male who presents today for a post op appointment s/p right shoulder 10/25/23 NE. Fall on 11/26/23. At his last visit he was to continue work with no lifting or overhead work. Patient reports that he has not changes in his symptoms, some days he is feeling great and others he does have soreness. Allergies No Known Allergies Allergy (Verified 04/12/24 09:30) HPI HPI Ov-Rt Shld 10/25/23 NE: Details: Naga is a 43 year old right hand dominant male who presents today for a post op appointment s/p right shoulder 10/25/23 NE. Fall on 11/26/23. At his last visit he was to continue work with no lifting or overhead work. Patient reports that he has not changes in his symptoms, some days he is feeling great and others he does have soreness. [facility] Surgical History Hx of vasectomy History of inguinal hernia repair, bilateral Hx of foot surgery Social History Alcohol intake: current Patient Tobacco Use Status: Former Tobacco user Quit Date: 4yrs ago Current occupational status: employed Current occupation: right hand dominant Physical Exam Vital Signs: BMI result Body Mass Index 31.8 Extrem Other: 45/90/130/L5 5/5 EC mild ttp over bicipital groove Assessment & Plan Assessment & Plan (1) Status post right rotator cuff repair: Comment: Right shoulder rotator cuff repair with collagen allograft with SAD and DCE 10/25/2023 NE Code(s): Z98.890 - Other specified postprocedural states Category: Surgical Plan: Status post rotator cuff repair with biceps tenodesis. He is doing very well but only 6 months out with job that requires overhead lifting. My recommendation is no lifting over 20 lb and no pushing pulling over 20 lb otherwise no restrictions. I would like to see him back in 6-8 weeks. I do not anticipate maximum medical improvement until 12 months postop but he may be ready to return to regular duty in 3 months. Coding Level of Care Code Est Pt Level 3 (30392) Diagnoses Status post right rotator cuff repair Z98.890
[2024-04-12 09:30] VITALS: BMI 31.8
== END 2024-04-12 09:59 | disposition home or self-care (01) ==
PROVIDERS: PCP Internal Medicine; Visit Provider Orthopaedic Surgery
DX: S43.431D Superior glenoid labrum lesion of right shoulder, subsequent encounter (principal); Z04.2 Encounter for examination and observation following work accident
CPT/HCPCS: 99213

== ENCOUNTER → 2024-04-12 09:13 | Outpatient (BNVA) | payer OTHER, SELFPAY | PROVIDERS: PCP Internal Medicine; Visit Provider Orthopaedic Surgery | DX: Z47.89 Encounter for other orthopedic aftercare (principal) | CPT/HCPCS: 99212 ==

== ENCOUNTER 2024-07-05 11:49 | Outpatient (AMB) | payer OTHER, SELFPAY ==
[2024-07-05 11:57] VITALS: BMI 31.8
--- NOTE | 2024-07-05 11:57 | MHC.OFFVIS ---
Vital Signs 07/05/24 11:57 Height 5 ft 7 in Weight 203 lb BMI 31.8 Intake Visit Reasons: Ov-Rt Shld 10/25/23 NE-follow up Intake Note: Naga is a 43 year old right hand dominant male who presents today for a post op appointment s/p right shoulder 10/25/23 NE. Fall on 11/26/23. At his last visit he was continued on light duty with no lifting over 20 lb and no pushing pulling over 20 lb otherwise no restrictions. Patient states PT/OT has him carrying 89 lbs, alternating hands, as well as lifting 49 lbs with both hands at the same time, which started last week. He has been experiencing soreness that comes with use of his right shoulder. Allergies No Known Allergies Allergy (Verified 07/05/24 11:58) HPI HPI Ov-Rt Shld 10/25/23 NE-follow up: Details: Naga is a 43 year old right hand dominant male who presents today for a post op appointment s/p right shoulder 10/25/23 NE. Fall on 11/26/23. At his last visit he was continued on light duty with no lifting over 20 lb and no pushing pulling over 20 lb otherwise no restrictions. Patient states PT/OT has him carrying 89 lbs, alternating hands, as well as lifting 49 lbs with both hands at the same time, which started last week. He has been experiencing soreness that comes with use of his right shoulder. [facility] Surgical History Hx of vasectomy History of inguinal hernia repair, bilateral Hx of foot surgery Social History Alcohol intake: current Patient Tobacco Use Status: Former Tobacco user Current occupational status: employed Current occupation: right hand dominant Physical Exam Vital Signs: BMI result Body Mass Index 31.8 Extrem Other: Subjective stiffness and anterior shoulder with random activities and is not objectively reproduceable. 5/5 EC Excellent ROM Assessment & Plan Assessment & Plan (1) Status post right rotator cuff repair: Comment: Right shoulder rotator cuff repair with collagen allograft with SAD and DCE 10/25/2023 NE Code(s): Z98.890 - Other specified postprocedural states Category: Surgical Plan: 9 mo post op doing well. Continue current work restrictions. F/u 3 mo. Anticipate MMI at 12 months post op Coding Level of Care Code Est Pt Level 3 (43487) Diagnoses Status post right rotator cuff repair Z98.890
== END 2024-07-05 12:25 | disposition home or self-care (01) ==
LOC: HO.HOS 11:49
PROVIDERS: PCP Internal Medicine; Visit Provider Orthopaedic Surgery
DX: S46.219D Strain of muscle, fascia and tendon of other parts of biceps, unspecified arm, subsequent encounter (principal)
CPT/HCPCS: 99213

== ENCOUNTER → 2024-07-05 11:49 | Outpatient (BNVA) | payer OTHER, SELFPAY | PROVIDERS: PCP Internal Medicine; Visit Provider Orthopaedic Surgery | DX: Z47.89 Encounter for other orthopedic aftercare (principal) | CPT/HCPCS: 99212 ==

== ENCOUNTER 2024-08-09 11:20 | Outpatient (AMB) | payer OTHER, SELFPAY ==
--- NOTE | 2024-08-09 11:24 | MHC.OFFVIS ---
Intake Visit Reasons: OV - Rt Shld 10/25/23 NE Intake Note: Naga is a 43 year old right hand dominant male who presents today for a post op appointment s/p right shoulder 10/25/23 NE. Fall on 11/26/23. He remains on light duty with no lifting over 20 lb and no pushing pulling over 20 lb otherwise no restrictions Allergies No Known Allergies Allergy (Verified 08/09/24 11:24) HPI HPI OV - Rt Shld 10/25/23 NE: Details: Naga is a 43 year old right hand dominant male who presents today for a post op appointment s/p right shoulder 10/25/23 NE. Fall on 11/26/23. He remains on light duty with no lifting over 20 lb and no pushing pulling over 20 lb otherwise no restrictions PFSH Surgical History Hx of vasectomy History of inguinal hernia repair, bilateral Hx of foot surgery Social History Alcohol intake: current Patient Tobacco Use Status: Former Tobacco user Current occupational status: employed Current occupation: right hand dominant Physical Exam Extrem Other: Subjective stiffness and anterior shoulder with random activities and is not objectively reproduceable. 5/5 EC Excellent ROM Assessment & Plan Assessment & Plan (1) Status post right rotator cuff repair: Comment: Right shoulder rotator cuff repair with collagen allograft with SAD and DCE 10/25/2023 NE Code(s): Z98.890 - Other specified postprocedural states Category: Surgical Plan: 9 mo s/p RTC repair, large including biceps tenodesis. He is doing excellent. I do not, however, recommend unrestricted lifting this soon post operatively. Continue current work restrictions. No lifting, pushing or pulling > 20lbs. Follow up 6 weeks Coding Level of Care Code Est Pt Level 3 (54769) Diagnoses Status post right rotator cuff repair Z98.890
== END 2024-08-09 11:34 | disposition home or self-care (01) ==
PROVIDERS: PCP Internal Medicine; Visit Provider Orthopaedic Surgery
DX: S43.431D Superior glenoid labrum lesion of right shoulder, subsequent encounter (principal)
CPT/HCPCS: 99212

== ENCOUNTER → 2024-08-09 11:20 | Outpatient (BNVA) | payer OTHER, SELFPAY | PROVIDERS: PCP Internal Medicine; Visit Provider Orthopaedic Surgery | DX: Z47.89 Encounter for other orthopedic aftercare (principal) | CPT/HCPCS: 99212 ==

== ENCOUNTER 2024-10-07 10:31 | Outpatient (AMB) | payer OTHER, SELFPAY ==
--- NOTE | 2024-10-07 10:38 | MHC.OFFVIS ---
Vital Signs 10/07/24 10:39 Height 5 ft 7 in Weight 203 lb BMI 31.8 Intake Visit Reasons: OV - Right Shoulder 10/25/23 Intake Note: Naga is a 43 year old right hand dominant male who presents today for a post op appointment s/p right shoulder 10/25/23 NE. (Right shoulder RTC repair with collagen allograft with SAD and DCE, Biceps sub pectoral tenodesis) Fall on 11/26/23. Patient continues to work on light duty at this time: No lifting, pushing or pulling > 20lbs. Patient reports that he is doing well, he has some days he is having significant pain this is usually triggered by repetitive motions and shoulder height activities. Other days he has no pain and has no concerns. Denies numbness and tingling. Allergies No Known Allergies Allergy (Verified 10/07/24 10:57) HPI HPI OV - Right Shoulder 10/25/23: Details: Naga is a 43 year old right hand dominant male who presents today for a post op appointment s/p right shoulder 10/25/23 NE. (Right shoulder RTC repair with collagen allograft with SAD and DCE, Biceps sub pectoral tenodesis) Fall on 11/26/23. Patient continues to work on light duty at this time: No lifting, pushing or pulling > 20lbs. Patient reports that he is doing well, he has some days he is having significant pain this is usually triggered by repetitive motions and shoulder height activities. Other days he has no pain and has no concerns. Denies numbness and tingling. PFSH Surgical History Hx of vasectomy History of inguinal hernia repair, bilateral Hx of foot surgery Social History Alcohol intake: current Patient Tobacco Use Status: Former Tobacco user Current occupational status: employed Current occupation: right hand dominant Physical Exam Vital Signs: BMI result Body Mass Index 31.8 Extrem Other: Right shoulder with full range of motion. He has 5/5 empty can and 5/5 supination strength. He has mild tenderness over the anterior shoulder that is not reproducible with palpation or manipulation. Assessment & Plan Assessment & Plan (1) Status post right rotator cuff repair: Comment: Right shoulder rotator cuff repair with collagen allograft with SAD and DCE 10/25/2023 NE Code(s): Z98.890 - Other specified postprocedural states Category: Surgical Plan: Naga is doing well from a large rotator cuff repair with biceps tenotomy and distal clavicle excision and subacromial decompression. He is doing well overall and may return to work without restrictions. I believe he has reached maximum medical improvement. No further intervention warranted. I discussed this with him. I am available if the need should arise but at this point he can see me on a p.r.n. basis. Coding Level of Care Code Est Pt Level 3 (58596) Diagnoses Status post right rotator cuff repair Z98.890
[2024-10-07 10:39] VITALS: BMI 31.8
== END 2024-10-07 11:59 | disposition home or self-care (01) ==
PROVIDERS: PCP Internal Medicine; Visit Provider Orthopaedic Surgery
DX: S43.431D Superior glenoid labrum lesion of right shoulder, subsequent encounter (principal)
CPT/HCPCS: 99212

== ENCOUNTER → 2024-10-07 10:31 | Outpatient (BNVA) | payer OTHER, SELFPAY | PROVIDERS: PCP Internal Medicine; Visit Provider Orthopaedic Surgery | DX: Z09 Encounter for follow-up examination after completed treatment for conditions other than malignant neoplasm (principal) | CPT/HCPCS: 99212 ==